=== PATIENT | male | born 1975 | race Caucasian/White ===

== ENCOUNTER → 2016-03-08 | Outpatient (CLI) | payer OTHER ==
[~2016-03-08] MED LIST: COZAAR 25 MG TA25 M1 PO; METFORMIN HCL500 MG PO; VANCOMYCIN1.5 GM/253 IV
== END ==
LOC: HYPER 06:53
DX: E11.621 Type 2 diabetes mellitus with foot ulcer (principal); L97.511 Non-pressure chronic ulcer of other part of right foot limited to breakdown of skin; L60.0 Ingrowing nail; M79.671 Pain in right foot; I10 Essential (primary) hypertension; E66.01 Morbid (severe) obesity due to excess calories; Z87.891 Personal history of nicotine dependence